=== PATIENT | female | born 1950 | race American Indian/Alaskan Native ===

== ENCOUNTER 2018-12-28 11:09 | Outpatient (CLI) | payer MEDICARE | END 2018-12-28 11:10 | disposition home or self-care (01) | LOC: C.PAT 11:09 | DX: Z47.1 Aftercare following joint replacement surgery (principal); M25.561 Pain in right knee ==

== ENCOUNTER 2019-01-02 06:08 | Day surgery (SDC) | payer MEDICARE ==
[2016-06-07 14:28] VITALS: BMI 32.2
[2019-01-02] MEDS ORDERED: ceFAZolin 1 gm in NS 1 GM/100 ML BAG IVPB ONE ×2 (07:30→07:56)
[2019-01-02] MEDS ORDERED: methylPREDNISolone Depo 80 mg/ml Inj ONE (07:31)
[2019-01-02] MEDS ORDERED: Morphine 1 mg/ml preservative-free Inj(Duramorph) ONE (07:31)
[2019-01-02] MEDS ORDERED: EPINEPHrine 1:1000 Nasal Sol(30mL) ONE (07:31)
[2019-01-02] MEDS ORDERED: Bupivacaine HCl 0.5% PF (10 ml) Inj ONE (07:31)
[2019-01-02] MEDS ORDERED: Lidocaine/Epinephrine 1% 1:100000 10 ML IJ ONE ×2 (07:31→08:26)
[2019-01-02] MEDS ORDERED: Sodium Chloride 0.9% 100 ML IV ONE (09:56)
[2019-01-02] MEDS ORDERED: HYDROmorphone 0.5 mg/0.5 ml ISec IVP PRN (10:02)
[2019-01-02] MEDS ORDERED: Lactated Ringer's 1,000 ML IV SCH (10:15)
[2019-01-02] MEDS ORDERED: Oxycodone/Acetaminophen 5/325 mg Tab PO PRN (10:24)
--- NOTE | 2019-01-02 10:40 | PCM.SURG1 ---
Surgeon's Initial Post Op Note - Surgeon's Notes Surgeon: Patricia Garnett MD Assistant Manager [employer]: Greg Swanson PA-C Type of Anesthesia: General Endo Anesthesia Administered By: Dr. Bolanos Pre-Operative Diagnosis: Right knee painful TKR Operative Findings: no obvious evidence of sepsis or loosening Post-Operative Diagnosis: same Operation Performed: Right knee arthroscopy, synovial biopsy Specimen/Specimens Removed: synovium for tissue culture and pathology/biopsy. fluid for culture and sensitivity, AFB/fungal Estimated Blood Loss: EBL {In ML}: 1 Blood Products Given: N/A Drains Used: No Drains Post-Op Condition: Fair Date of Surgery/Procedure: 01/02/19 Time of Surgery/Procedure: 10:39 Results - Vital Signs Recent Vital Signs: Last Vital Signs Temp 97.8 F 01/02/19 06:20 Pulse 79 01/02/19 06:20 Resp 20 01/02/19 06:20 BP 140/91 H 01/02/19 06:20 Pulse Ox 99 01/02/19 06:20 - Impressions Impression: [place] RESEARCH ANALYST patient report reviewed, tramadol 10/2018. Patient counseled on the risks of addiction, physical or psychological dependence, and overdose associated with opioid drugs and the danger of taking opioid drugs with alcohol and other central nervous system depressants, and cautioned patient on storage and disposal.
[2019-01-02 13:18] VITALS: BP 119/76; PULSE 72; RESP 18; TEMP 97.6; O2SAT 100
--- NOTE | 2019-01-02 20:45 | OP ---
PROCEDURE DATE: 01/02/2019 PREOPERATIVE DIAGNOSIS: Status post right total knee replacement arthroplasty with painful knee. 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 PROCEDURES: 1. Diagnostic arthroscopy. 2. Synovial biopsy. 3. Deep tissue cultures. 4. Partial synovectomy. 5. Local anesthesia block with Marcaine and application of a compression dressing. DESCRIPTION OF PROCEDURE: Prior to the procedure, risks and benefits of the surgery, prognosis and complications were explained including infection, cardiac, pulmonary, recurrence, need for future surgery, permanent weakness, permanent numbness, persistence of pain in the knee, and all the other associated complications of arthroscopy, and painful total knee. The patient was brought to the operating room. All the questions were answered. She consented for the surgery prior. After induction of anesthesia, the knee was prepped and draped. Pneumatic tourniquet was used, but not inflated. A diagnostic arthroscopy was done through the standard lateral portal. Arthroscope was introduced into the suprapatellar pouch. Hypertrophic tissue was seen around the patella and synovial hypertrophy was seen, and at this point the fluid was obtained initially. It was 10 mL of blood-tinged fluid. The fluid was sent for culture and sensitivity, Gram stain, aerobic, anaerobic, and TB. Once this was obtained, then we proceeded with synovial biopsy and synovial biopsy was sent for culture and sensitivity, Gram stain, and pathology. Once this was done using high-speed shaver, partial synovectomy was done and the hypertrophic synovial tissue around the patella was removed. At this point, wound was thoroughly irrigated and instrumentation was done through the standard medial portal. The arthroscopy portals were closed with 3-0 nylon suture. Marcaine was used for local anesthesia block. The patient tolerated the procedure well and left the operating room to the recovery room in satisfactory condition. Allen Garnett MD
== END 2019-01-02 13:35 | disposition home or self-care (01) ==
LOC: C.SDS 06:08
PROVIDERS: ATTEND Orthopaedic Surgery
DX: T84.84XA Pain due to internal orthopedic prosthetic devices, implants and grafts, initial encounter (principal); M65.861 Other synovitis and tenosynovitis, right lower leg; Y83.1 Surgical operation with implant of artificial internal device as the cause of abnormal reaction of the patient, or of later complication, without mention of misadventure at the time of the procedure; Z96.651 Presence of right artificial knee joint; I10 Essential (primary) hypertension; K21.9 Gastro-esophageal reflux disease without esophagitis; M19.90 Unspecified osteoarthritis, unspecified site; G47.33 Obstructive sleep apnea (adult) (pediatric)
CPT/HCPCS: 29876; 87015; 87070; 87101; 87116; 87206; 88305; J0690; J7030